=== PATIENT | female | born 1950 | race Caucasian/White ===

== ENCOUNTER 2021-02-06 09:50 | Outpatient (REF) | payer MEDICARE, MEDICAID, SELFPAY ==
[2021-02-06 11:27] LABS: MANUAL DIFF FLAG NO
[2021-02-06 11:32] LABS: Basophils Percent Auto 0.5 % (0-2); Eosinophils Absolute Auto 0.1 X10*3/uL (0.0-0.4); Hematocrit 42.6 % (37.0-47.0); Hemoglobin 14.2 g/dl (12.0-16.0); Imm Gran Abs Auto 0.03 X10*3/uL (0.00-0.03); Imm Gran Pct Auto 0.5 % (0.0-0.4); Lymphocytes Absolute Auto 2.2 X10*3/uL (1.2-4.9); Mean Corpuscular HGB Conc 33.3 g/dl (31.0-35.0); Mean Corpuscular Hemoglobin 29.9 pg (27.0-33.0); Mean Corpuscular Volume 89.7 fL (80.0-98.0); Mean Platelet Volume 10.4 fL (9.4-12.3); Monocytes Absolute Auto 0.6 X10*3/uL (0.1-1.2); Monocytes Percent Auto 9.5 % (2-11); Neutrophils Absolute Auto 3.1 x10*3/uL (2.0-8.3); Neutrophils Percent Auto 51.5 % (45-73); Platelet Count 271 X10*3/uL (160-400); Red Blood Count 4.75 X10*6/uL (4.20-5.50); Red Cell Distribution Width 12.2 % (11.0-16.0)
[2021-02-06 11:42] LABS: INTERNATIONAL NORM RATIO 1.1 (0.9-1.1)
[2021-02-06 12:11] LABS: Alanine Aminotransferase 20 U/L (0-31); Albumin Level 4.7 g/dL (3.5-5.0); Alkaline Phosphatase 74 U/L (39-117); Anion Gap 12 (12-20); Aspartate Amino Transferase 15 U/L (5-31); Bilirubin Total 0.5 mg/dL (0.0-1.0); Blood Urea Nitrogen 18 mg/dL (9-16); Calcium 10.1 mg/dL (8.4-10.2); Carbon Dioxide 25 mmol/L (22-29); Chloride 105 mmol/L (96-108); Estimated Glomerular Filt Rate > 60; Glucose Random 237 mg/dL (60-115); Potassium 4.3 mmol/L (3.3-5.1); Sodium 138 mmol/L (135-145); Total Protein 7.6 g/dL (6.5-8.0)
[2021-02-06 12:24] LABS: Erythrocyte Sedimentation Rate 12 MM/HR (0-20)
[2021-02-06 12:34] LABS: Ferritin 98 ng/mL (10-250); TSH reflex Free T4 0.89 uIU/mL (0.32-4.0); Vitamin D 25-OH Total 31.5 ng/mL (>30)
[2021-02-06 13:01] LABS: Folate 18.1 ng/mL (> or = 4.0); Vitamin B12 1031 pg/mL (200-900)
[2021-02-07 04:36] LABS: HBS Num1 0.03 mIU/mL (0-7.99); Hepatitis A Antibody IgM 0.37 Index (0-0.79); ~Hepatitis A Antibody IgM Nonreactive (Nonreactive); ~Hepatitis B Surface Antibody NONREACTIVE (Nonreactive)
[2021-02-07 05:02] LABS: HBc Num1 0.08 S/CO (0.00-0.79); Hepatitis B Core Antibody Nonreactive (Nonreactive); Hepatitis B Surface Antigen Negative (Negative); ~HepC Num1 0.45 S/CO (0.00-0.79); ~Hepatitis C Antibody Nonreactive (Nonreactive)
[2021-02-08 13:26] LABS: Immunoglobulin G 916 mg/dL (600-1540)
[2021-02-09 23:36] LABS: Zinc 81 mcg/dL (60-130)
[2021-02-10 10:32] LABS: Vitamin C 1.3 mg/dL (0.3-2.7)
[2021-02-10 12:26] LABS: Vitamin K1 1013 pg/mL (130-1500)
[2021-02-11 16:12] LABS: Vitamin A 45 mcg/dL (38-98)
[2021-02-12 17:57] LABS: Vitamin B5 (Pantothenic Acid) <40 ng/mL (<275)
[2021-02-13 13:41] LABS: Nicotinamide <20 ng/mL; Vit B3 - Nicotinic Acid <20 ng/mL
[2021-02-13 14:51] LABS: Mitochondrial Antibodies NEGATIVE (NEGATIVE)
[2021-02-13 16:15] LABS: Gliadin Deamidated IgA Ab <1.0 U/mL; Gliadin Deamidated IgG Ab <1.0 U/mL; Transglutaminase Ab IgG <1.0 U/mL; Transglutaminase IgA <1.0 U/mL
== END 2021-02-06 09:51 | disposition home or self-care (01) ==
LOC: HO.LAB 09:50
PROVIDERS: PCP Internal Medicine; Visit Provider Internal Medicine Gastroenterology
DX: R10.13 Epigastric pain (principal); R10.33 Periumbilical pain; G89.29 Other chronic pain; K75.81 Nonalcoholic steatohepatitis (NASH); K52.839 Microscopic colitis, unspecified
CPT/HCPCS: 36415; 80053; 82180; 82306; 82607; 82728; 82746; 82784; 83516; 84207; 84443; 84590; 84591; 84597; 84630; 85025; 85610; 85652; 86140; 86255; 86256; 86704; 86706; 86709; 86803; 87340; 99202

== ENCOUNTER 2021-03-19 10:14 | Outpatient (REF) | payer MEDICARE, MEDICAID, SELFPAY | END 2021-03-19 10:15 | disposition home or self-care (01) | LOC: HO.US 10:14 | PROVIDERS: PCP Internal Medicine; Visit Provider Internal Medicine Gastroenterology | DX: Z13.89 Encounter for screening for other disorder (principal) ==

== ENCOUNTER 2021-03-21 09:42 | Outpatient (REF) | payer MEDICARE, MEDICAID, SELFPAY ==
--- NOTE | ~2021-03-21 | US_ITS ---
EXAMINATION: US COMPLETE ABDOMEN WITH LIVER ELASTOGRAPHY CLINICAL INFORMATION: Epigastric pain. COMPARISON: None. TECHNIQUE: Real-time imaging of the abdominal viscera. Noninvasive ultrasound liver fibrosis assessment is performed using Dede ElastPQ point quantification shear wave elastography (2D-SWE) with a C5-2 MHz transducer. Multiple elastography samples are obtained. FINDINGS: PANCREAS: Normal. The visualized pancreatic head and body are normal in appearance. The remainder of the pancreas is obscured from visualization by the overlying bowel gas. ABDOMINAL AORTA: The middle, and distal aortic segments are normal in caliber. The proximal abdominal aorta is obscured by overlying gas. INFERIOR VENA CAVA: Visualized portions are normal. LIVER: Normal. The liver demonstrates normal size, contour and echogenicity. No focal lesion or intrahepatic biliary duct dilatation. The right lobe measures 13.6 cm in length. The left lobe measures 7.4 cm in length. Portal flow is hepatopedal. Shear wave liver elastography median stiffness is 1.76 m/s (reference: normal median stiffness is 1.3 m/s or less). IQR/median stiffness to assess sampling precision is 0.09 (reference: good quality data set is IQR/median stiffness of 0.15 or less). GALLBLADDER: Normal. The gallbladder is physiologically distended without evidence of stones, sludge, polyps, wall thickening or pericholecystic fluid. COMMON BILE DUCT: Normal in caliber measuring 0.6 cm in diameter. RIGHT KIDNEY: There is mild prominence of the right renal pelvis, question fullness versus mild hydronephrosis. No renal calculi or focal parenchymal lesions. The kidney measures 11.0 cm in maximum dimension. LEFT KIDNEY: Normal. No hydronephrosis. No renal calculi or focal parenchymal lesions. The kidney measures 9.4 cm in maximum dimension. SPLEEN: Normal. The spleen measures 6.9 cm in maximum dimension. FREE FLUID: None. US/US abdomen comp w elastography IMPRESSION: 1. There is mild right renal fullness versus hydronephrosis. 2. Liver elastography: Median liver stiffness measures 1.76 m/s corresponding to cACLD, suggestive. REFERENCE: Society of Radiologists in Ultrasound Liver Stiffness Thresholds (2019): LIVER STIFFNESS THRESHOLDS: *Liver Stiffness equal or less than 1.3 m/s: High probability of being normal. *Liver Stiffness less than 1.7 m/s: In the absence of other known clinical signs, rules out compensated advanced chronic liver disease. *Liver Stiffness 1.7-2.1 m/s: Suggestive of compensated advanced chronic liver disease but need further test for confirmation. *Liver Stiffness over 2.1 m/s: Rules in compensated advanced chronic liver disease. *Liver Stiffness over 2.4 m/s: Suggestive of clinically significant portal hypertension. QUALITY OF DATA SET: *IQR/Median value equal or less than 0.15 implies a quality data set. *IQR/Median value over 0.15 implies a poor quality data set. SIGNIFICANT CHANGE FROM PRIOR EXAM: Significant change if liver stiffness measurement is 10% or greater from prior exam. OTHER CONSIDERATIONS: The stage of liver fibrosis may be overestimated in the setting of acute hepatitis, liver inflammation, elevated liver function tests, hepatic vascular congestion, obstructive cholestasis, non-fasting state, and infiltrative diseases such as amyloidosis and lymphoma. In some patients with NAFLD, the liver stiffness thresholds for compensated advanced chronic liver disease may be lower. In causes other than viral hepatitis and NAFLD, liver stiffness thresholds are not well established.
== END 2021-03-21 09:43 | disposition home or self-care (01) ==
LOC: HO.US 09:42
PROVIDERS: PCP Internal Medicine Gastroenterology; Visit Provider Internal Medicine Gastroenterology
DX: R10.13 Epigastric pain (principal); K76.0 Fatty (change of) liver, not elsewhere classified
CPT/HCPCS: 76705; 76981

== ENCOUNTER 2021-03-30 08:28 | Outpatient (REF) | payer MEDICARE, MEDICAID, SELFPAY ==
--- NOTE | ~2021-03-30 | CT_ITS ---
EXAMINATION: CT ABDOMEN AND PELVIS WITHOUT CONTRAST CLINICAL INFORMATION: Abdominal pain/right-sided flank pain COMPARISON: Previous abdominal ultrasound 03/21/2021 TECHNIQUE: Multidetector volumetric imaging was performed from the superior aspect of the liver through the pubic symphysis. Sagittal and coronal reformatted images were obtained on the technologist's workstation. This CT examination was performed using dose optimization techniques as appropriate, variously including the following: *Automated exposure control *Adjustment of mA and/or kV according to patient size (this includes techniques or standardized protocols for targeted exams where dose is matched to indication/reason for exam; i.e. extremities or head) *Use of iterative reconstruction technique DLP: 311 mGy-cm FINDINGS: LUNG BASES: The visualized lung bases are unremarkable. LIVER, GALLBLADDER, AND BILIARY TREE: The liver is normal in size, shape, and attenuation. No focal hepatic lesion or biliary ductal dilatation is present. The gallbladder is unremarkable with no evidence of radiopaque gallstones, gallbladder wall thickening, or obvious pericholecystic inflammatory changes. PANCREAS: Unremarkable. SPLEEN: Unremarkable. ADRENAL GLANDS: Unremarkable. KIDNEYS AND URETERS: There are 2 tiny 1 mm stones in the upper and lower pole of the left kidney. No right renal stone is seen. No hydronephrosis, ureteral dilatation or ureteral stone is seen. BLADDER: Unremarkable. GASTROINTESTINAL TRACT: There is diverticulosis of the colon. The small and large bowel are otherwise unremarkable. The appendix is unremarkable. ABDOMINAL WALL: No significant hernia is appreciated. LYMPH NODES: Normal. VASCULAR: Unremarkable. PELVIC VISCERA: Unremarkable. OSSEOUS STRUCTURES: There are degenerative changes of the spine. CT/CT abdomen pelvis wo con IMPRESSION: Small left renal stones. Diverticulosis of the colon. Fleischner guidelines were followed.
== END 2021-03-30 08:29 | disposition home or self-care (01) ==
LOC: HO.CT 08:28
PROVIDERS: Visit Provider Internal Medicine Gastroenterology
DX: R10.9 Unspecified abdominal pain (principal)
CPT/HCPCS: 74176

== ENCOUNTER → 2021-06-22 10:26 | Outpatient (BNVA) | payer MEDICARE, MEDICAID, SELFPAY | PROVIDERS: PCP Internal Medicine Gastroenterology; Visit Provider Internal Medicine Gastroenterology | DX: R10.13 Epigastric pain (principal); K21.9 Gastro-esophageal reflux disease without esophagitis | CPT/HCPCS: Q3014 ==

== ENCOUNTER 2021-09-19 08:56 | Day surgery (SDC) | payer MEDICARE, MEDICAID, SELFPAY ==
--- NOTE | 2021-09-18 12:03 | HO.ANESPROP2 ---
Documented by User: Delaney Jessica NP 09/18/21 12:05 HPI - Anesthesia Eval Consult details Narrative: 71yo F for Upper Endoscopy PMFSH Active Problems Active Problems: All Active Problems (Updated 09/13/21 @ 13:31 by Orquidea Montiel, MONI) NAFLD (nonalcoholic fatty liver disease) (Acute) Epigastric abdominal pain (Acute) Right sided abdominal pain (Acute) Past Medical History Medical History (Updated 09/13/21 @ 13:31 by Orquidea Montiel, RN) Diabetes mellitus Fatty liver GERD (gastroesophageal reflux disease) Glaucoma HTN (hypertension) Osteoarthritis Surgical History Surgical History (Updated 09/13/21 @ 13:31 by Orquidea Montiel, MONI) History of esophagogastroduodenoscopy (EGD) Hx of colonoscopy Social History Social History Patient Tobacco Use Status: Never used Tobacco Use of substances other than those prescribed or required for medical reasons: No Have you been hit, kicked, punched, or otherwise hurt by someone within the past year? If so, by whom?: No Are you DNR?: No Advance Directives: No Advance Directives Information Provided: Yes Meds Allergies Allergy/AdvReac Type Severity Reaction Status Date / Time No Known Allergies Allergy Verified 02/06/21 10:43 Home Medications Medication Instructions Recorded Confirmed Last Taken Type amlodipine 10 mg tablet 1 tab PO DAILY 09/13/21 09/13/21 Unknown History glipizide 10 mg tablet, extended 1 tab PO DAILY 09/13/21 09/13/21 Unknown History release 24 hr insulin glargine 100 unit/mL (3 10 unit subcut BEDTIME 09/13/21 09/13/21 Unknown History mL) subcutaneous pen (Basaglar KwikPen U-100 Insulin) paroxetine HCl 10 mg tablet 1 tab PO DAILY 09/13/21 09/13/21 Unknown History simvastatin 20 mg tablet 1 tab PO BEDTIME 09/13/21 09/13/21 Unknown History sitagliptin 100 mg tablet (Januvia) 1 tab PO DAILY 09/13/21 09/13/21 Unknown History timolol maleate 0.5 % eye drops 1 drp ophthalmic (eye) BID 09/13/21 09/13/21 Unknown History Exam Exam Date and Time: September 18, 2021 1203 Assessment and Plan Assessment Anesthesia Assessment: Chart Reviewed Documented by User: Leila Vega MD 09/19/21 10:36 [facility] Past Medical History Medical History (Updated 09/13/21 @ 13:31 by Orquidea Montiel, RN) Diabetes mellitus Fatty liver GERD (gastroesophageal reflux disease) Glaucoma HTN (hypertension) Osteoarthritis Family History Family history of problems with anesthesia: No Surgical History Surgical History (Updated 09/13/21 @ 13:31 by Orquidea Montiel, MONI) History of esophagogastroduodenoscopy (EGD) Hx of colonoscopy History of Problems with Anesthesia: No Social History Social History Patient Tobacco Use Status: Never used Tobacco Use of substances other than those prescribed or required for medical reasons: No Have you been hit, kicked, punched, or otherwise hurt by someone within the past year? If so, by whom?: No Are you DNR?: No Advance Directives: No Advance Directives Information Provided: Yes Meds Allergies Allergy/AdvReac Type Severity Reaction Status Date / Time No Known Allergies Allergy Verified 02/06/21 10:43 Home Medications Medication Instructions Recorded Confirmed Last Taken Type amlodipine 10 mg tablet 1 tab PO DAILY 09/13/21 09/13/21 Unknown History glipizide 10 mg tablet, extended 1 tab PO DAILY 09/13/21 09/13/21 Unknown History release 24 hr insulin glargine 100 unit/mL (3 10 unit subcut BEDTIME 09/13/21 09/13/21 Unknown History mL) subcutaneous pen (Basaglar KwikPen U-100 Insulin) paroxetine HCl 10 mg tablet 1 tab PO DAILY 09/13/21 09/13/21 Unknown History simvastatin 20 mg tablet 1 tab PO BEDTIME 09/13/21 09/13/21 Unknown History sitagliptin 100 mg tablet (Januvia) 1 tab PO DAILY 09/13/21 09/13/21 Unknown History timolol maleate 0.5 % eye drops 1 drp ophthalmic (eye) BID 09/13/21 09/13/21 Unknown History Exam Height,Weight and Vital Signs: Height 5 ft Weight 56.699 kg Vital Signs Temp Pulse Resp BP Pulse Ox O2 Del Method 09/19/21 10:25 97.7 F 71 18 140/77 H 98 Room Air Pertinent Lab Results Pertinent Lab Results: Lab Results 09/19/21 Range/Units 10:06 POC Glucose 229 H (60-115) mg/dL Airway Mallampati Class: I TM Dist: >3cm Neck ROM: Full Loose/Missing/Broken Teeth: No (Per patient) Heart: RRR Lungs: CTAB Assessment and Plan Assessment Anesthesia Assessment: Anesthesia Plan Discussed Final Anesthetic Review Family History of Problems with Anesthesia: No History of Problems with Anesthesia: No NPO: Yes ASA Class: II Final Preanesthetic Review: No Changes in Pt Med Stat, Meds/Allgs Chart Reviewed, Consent Obtained/Reviewed and Anes Risks/Benef Reviewed Patient Risk: Low Procedure Risk: Low Assessment/Block/Sedation in SS: Assess/Block/Sedation- Anesthetic Plan Anesthetic Plan: MAC: Disposition: Standard PACU
[2021-09-19 10:09] LABS: Glucose, Whole Blood 229 mg/dL (60-115)
[2021-09-19 10:16] VITALS: BMI 24.4
--- NOTE | 2021-09-19 10:21 | MHC.SHP ---
Pre-Procedural Eval Section A Date of Service: 09/19/21 Section B Chief Complaint: epigastric pain Relevant Family History (Specify if Yes): No Relevant Social History: None Present Medications: see Short Stay Collaborative assessment Medical History: Significant History (Diabetes mellitus Fatty liver GERD (gastroesophageal reflux disease) Glaucoma HTN (hypertension) Osteoarthritis) History of Previous Operations: Relevant previous surgery/procedure and date(s) (History of esophagogastroduodenoscopy (EGD) Hx of colonoscopy) Allergies: Allergies Allergy/AdvReac Type Severity Reaction Status Date / Time No Known Allergies Allergy Verified 02/06/21 10:43 Review of Systems Sugical H&P ROS: Negative: Constitution, Cardiovascular, Respiratory, Neurological, Psychiatric, Hem-Onc, Allergic/Immunologic, Gastrointestinal, Genitourinary, Musculoskeletal, Integumentary, Endocrine and Eyes/Ears/Nose/Throat Exam Surgical H&P Exam: Normal: HEENT, Normal: Heart, Normal: Lungs, Normal: Extremities, Normal: Abdomen, Normal: Skin and Normal: Neurological Plan Diagnosis/Plan: Unchanged I have reviewed the history and physical and performed a pertinent physical examination on my patient. No changes have occurred unless specified.
[2021-09-19 10:25] VITALS: BP 140/77; PULSE 71; RESP 18; TEMP 36.5; O2SAT 98
[2021-09-19] MEDS: Lactated Ringers 1,000 ML 100 ML IVCONT (10:35)
--- NOTE | 2021-09-19 10:58 | W.PM.OPN ---
Operative Note Operative Note Date of Service: 09/19/21 Narrative: Procedure Description: EGD Indication: epigastric pain Anesthesia: MAC FLEXIBLE TRANSORAL UPPER GASTROINTESTINAL ENDOSCOPY UPPER ENDOSCOPY Consent: Indications for the procedure and potential complications of bleeding, perforation, reaction to medications and missed diagnosis were discussed with the patient and informed consent was obtained. Instrument: Olympus GIF H 190 J mid size upper endoscope Monitoring: Vital signs and clinical assessment, continuous EKG monitoring, Pulse oximetry, Carbon Dioxide monitoring and blood pressure monitoring were done throughout the procedure. Procedure: The patient was placed in the left lateral decubitis position and pre-procedure medications were administered and a bite block was placed. The endoscope was inserted into the mouth and advanced under direct vision to the third part of duodenum. A careful inspection was made as the upper endoscope was withdrawn including a retroflexed examination of the proximal stomach; Findings and interventions are described below. Findings: Larynx:normal Esophagus: GE junction at 38 cm, diaphragm hiatus at 38 cm, few salmon pink islands of tissue suggestive of barretts bx taken. Also small erosion noted with some esophagitis Stomach: Patchy gastric erythema. Biopsies were obtained. Grade 2 flap valve on retroflexed examination of the cardia. 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
[2021-09-19 11:05] VITALS: BP 83/44; PULSE 74; RESP 12; TEMP 36.4; O2SAT 97
[2021-09-19 11:10] VITALS: BP 95/52; PULSE 72; RESP 14; O2SAT 98
[2021-09-19 11:20] VITALS: BP 131/75; PULSE 70; RESP 16; TEMP 36.4; O2SAT 98
== END 2021-09-19 11:46 | disposition home or self-care (01) ==
PROVIDERS: PCP Nurse Practitioner Family; Visit Provider Internal Medicine Gastroenterology
PROC: 0DJ08ZZ Inspection of Upper Intestinal Tract, Via Natural or Artificial Opening Endoscopic (ICD-10-PCS; CPT 43235; principal; 2021-09-19 10:50)
DX: K29.50 Unspecified chronic gastritis without bleeding (principal); K20.80 Other esophagitis without bleeding; K29.80 Duodenitis without bleeding; K44.9 Diaphragmatic hernia without obstruction or gangrene; K21.9 Gastro-esophageal reflux disease without esophagitis; K76.0 Fatty (change of) liver, not elsewhere classified; I10 Essential (primary) hypertension; H40.9 Unspecified glaucoma; M19.90 Unspecified osteoarthritis, unspecified site; E11.9 Type 2 diabetes mellitus without complications; Z79.4 Long term (current) use of insulin; Z79.899 Other long term (current) drug therapy
CPT/HCPCS: 43239; 82947; 88305; 88342; J3010

== ENCOUNTER → 2021-10-15 10:16 | Outpatient (BNVA) | payer MEDICARE, MEDICAID, SELFPAY | PROVIDERS: PCP Nurse Practitioner Family; Visit Provider Internal Medicine Gastroenterology | DX: R10.13 Epigastric pain (principal); K22.70 Barrett's esophagus without dysplasia | CPT/HCPCS: 99212 ==